=== PATIENT | female | born 1965 | race Caucasian/White ===

== ENCOUNTER 2023-05-01 10:13 | Emergency (ER) | payer MEDICARE, MEDICAID ==
[~2023-05-01] VITALS: Ht 172.7 cm; Wt 67.4 kg
[~2023-05-01 10:13] MED LIST: CYCL-1 PO; HYDR-4353 PO; HYDR-4383 PO
[2023-05-01 10:25] VITALS: BP 111/73; PULSE 89; RESP 16; TEMP 98.5; O2SAT 98
[2023-05-01] MEDS ORDERED: CYCL-1 PO (11:05)
--- NOTE | 2023-05-01 13:48 | NUR ---
I agree with the assessment per Monty Mckeon LVN
== END 2023-05-01 11:18 | disposition home or self-care (01) ==
LOC: ER 10:13
DX: S13.4XXA Sprain of ligaments of cervical spine, initial encounter (principal); E78.00 Pure hypercholesterolemia, unspecified; I10 Essential (primary) hypertension; F31.9 Bipolar disorder, unspecified; M54.2 Cervicalgia; M54.50 Low back pain, unspecified; Z88.5 Allergy status to narcotic agent; Z88.8 Allergy status to other drugs, medicaments and biological substances; Z79.899 Other long term (current) drug therapy; V49.50XA Passenger injured in collision with unspecified motor vehicles in traffic accident, initial encounter; Y93.89 Activity, other specified; Y92.89 Other specified places as the place of occurrence of the external cause; Y99.8 Other external cause status
CPT/HCPCS: 99283

== ENCOUNTER 2024-02-14 21:33 | Emergency (ER) | payer MEDICARE, MEDICAID ==
[~2024-02-14] VITALS: Ht 170.2 cm; Wt 76.8 kg
[2024-02-14 21:35] VITALS: BP 104/64; PULSE 96; RESP 16; TEMP 98.1; O2SAT 98
== END 2024-02-14 22:37 | disposition home or self-care (01) ==
LOC: ER 21:33
DX: Z46.6 Encounter for fitting and adjustment of urinary device (principal); E78.00 Pure hypercholesterolemia, unspecified; I10 Essential (primary) hypertension; G89.29 Other chronic pain; F12.90 Cannabis use, unspecified, uncomplicated; Z88.8 Allergy status to other drugs, medicaments and biological substances; Z79.899 Other long term (current) drug therapy
CPT/HCPCS: 99281; A6222; A6402; A6449

== ENCOUNTER 2024-04-16 14:18 | Emergency (ER) | payer MEDICARE, MEDICAID ==
[~2024-04-16] VITALS: Ht 165.1 cm; Wt 74.5 kg
[2024-04-16 17:04] LABS: BASOPHILS # (AUTO) 0.1 X10'3 (0-0.2); BASOPHILS % (AUTO) 0.8 % (0-1); EOSINOPHILS # (AUTO) 0.2 X10'3 (0-0.9); EOSINOPHILS % (AUTO) 1.8 % (0-6); HEMATOCRIT 27.5 % (35.0-45.0); HEMOGLOBIN 9.3 g/dl (12.0-16.0); LYMPHOCYTES # (AUTO) 2.2 X10'3 (1.1-4.8); LYMPHOCYTES % (AUTO) 19.3 % (21-51); MEAN CORPUSCULAR HEMOGLOBIN 32.2 PG (27.0-31.0); MEAN CORPUSCULAR HGB CONC 33.8 g/dL (33.0-36.5); MEAN CORPUSCULAR VOLUME 95.2 FL (78-98); MEAN PLATELET VOLUME 8.2 FL (7.4-10.4); MONOCYTES # (AUTO) 1.3 X10'3 (0-0.9); MONOCYTES % (AUTO) 11.6 % (2-12); NEUTROPHILS # (AUTO) 7.6 X10'3 (1.8-7.7); NEUTROPHILS % (AUTO) 66.5 % (42-75); PLATELET COUNT 240 X10'3 (140-440); RED BLOOD COUNT 2.89 X10'6 (4.20-5.60); RED CELL DISTRIBUTION WIDTH 13.1 % (11.5-14.5); WHITE BLOOD COUNT 11.4 X10'3 (4.5-11.0)
[2024-04-16 17:14] LABS: ALBUMIN 3.3 G/DL (3.4-5.0); ANION GAP 8 (8-16); BLOOD UREA NITROGEN 27 MG/DL (7-18); BUN/CREATININE RATIO 27.8 (10.0-20.0); CALCIUM 8.8 MG/DL (8.5-10.1); CHLORIDE 99 MMOL/L (99-107); CREATININE 0.97 MG/DL (0.40-0.90); GLUCOSE 91 MG/DL (70-104); POTASSIUM 3.2 MMOL/L (3.5-5.1); SODIUM 135 MMOL/L (135-145); eCRCL 57 ML/MIN; eGFR 59 ML/MIN
[2024-04-16 18:00] VITALS: BP 100/73; PULSE 86; RESP 14; TEMP 99.4; O2SAT 98
== END 2024-04-16 18:06 | disposition home or self-care (01) ==
LOC: ER 14:19
DX: M79.651 Pain in right thigh (principal); E78.00 Pure hypercholesterolemia, unspecified; I10 Essential (primary) hypertension; G89.29 Other chronic pain; F12.90 Cannabis use, unspecified, uncomplicated; F31.9 Bipolar disorder, unspecified; Z88.5 Allergy status to narcotic agent; Z79.899 Other long term (current) drug therapy
CPT/HCPCS: 36415; 73560; 80048; 83605; 84145; 85025; 93971; 99284

== ENCOUNTER 2024-12-16 13:35 | Outpatient (CLI) | payer MEDICARE, MEDICAID ==
--- NOTE | 2024-12-16 20:52 | RADIOLOGY REPORT ---
EXAM: MR MRI LUMBAR SPINE HISTORY: PAIN,OA,RADICULOPATHY COMPARISON: None TECHNIQUE: MRI was performed utilizing multiple appropriate imaging planes and pulse sequences. FINDINGS: For the purposes of this report, the last square-shaped vertebra is considered L5. Prior to any surg heaven, correlation with lumbar spine radiographs should be done. VERTEBRAE: No significant compression deformity is noted. No suspicious lesion is seen. SPINAL CORD: Terminates at the L1 level. No evidence of cord edema or myelomalacia within the parti ally visualized conus medullaris. PARASPINAL SOFT TISSUES: Unremarkable. INTERVERTEBRAL DISCS: T12-L1: Mild central disc protrusion with mild central canal stenosis without nerve impingement. The neural foramina are patent. L1-L2: Mild degenerative grade 1 anterolisthesis without pars defects, severe reduction in disc heigh t, mild broad-based posterior disc-osteophyte complex, modic type 1 discogenic endplate changes on liss th sides of the the disc, mild bilateral posterior facet and ligamentum flavum hypertrophy and small bilateral facet joint effusions with resultant mild central canal stenosis and mild bilateral neural foramina stenosis without definite nerve impingement. L2-L3: Mild degenerative grade 1 anterolisthesis without pars defects, mild broad-based posterior di sc bulge, mild bilateral posterior facet and ligamentum flavum hypertrophy and trace bilateral facet joint effusions with mild central canal stenosis and mild bilateral neural foramina stenosis without definite nerve impingement. L3-L4: Mild broad-based posterior disc bulge, moderate bilateral posterior facet and ligamenta flav a hypertrophy with resultant mild central canal stenosis and mild bilateral neural foramina stenosis with impingement of the bilateral emerging L4 nerve roots. L4-L5: Mild reduction in disc height, mild broad-based posterior disc- osteophyte complex eccentric to the right, modic type 1 discogenic endplate changes on both sides of the disc, moderate right and mild left posterior facet arthropathy prominent posterior fat pt with resultant Moderate central can al stenosis, crowding of the traversing lumbosacral nerve roots, moderate right and mild left neural foramina stenosis with impingement of the bilateral emerging L5 nerve roots and the left exiting L4 n erve. L5-S1: Mild broad-based posterior disc bulge eccentric to the left moderate left foraminal endplate osteophytosis with Modic type 2 endplate changes on the left side, mild bilateral posterior facet and ligamenta flava hypertrophy with resultant mild central canal stenosis , moderate left and mild righ t neural foramina stenosis with impingement of the left emerging S1 nerve roots in the left exiting L 5 nerve . OTHER: None. IMPRESSION: Multilevel degenerative spondylolisthesis, multilevel degenerative disc disease and posterior facet a rthropathy with evidence of nerve impingement at L3-S1 levels. L3-L4: Mild broad-based posterior disc bulge, moderate bilateral posterior facet and ligamenta flav a hypertrophy with resultant mild central canal stenosis and mild bilateral neural foramina stenosis with impingement of the bilateral emerging L4 nerve roots. L4-L5: Mild reduction in disc height, mild broad-based posterior disc- osteophyte complex eccentric to the right, modic type 1 discogenic endplate changes on both sides of the disc, moderate right and mild left posterior facet arthropathy prominent posterior fat pt with resultant Moderate central can al stenosis, crowding of the traversing lumbosacral nerve roots, moderate right and mild left neural foramina stenosis with impingement of the bilateral emerging L5 nerve roots and the left exiting L4 n erve. L5-S1: Mild broad-based posterior disc bulge eccentric to the left moderate left foraminal endplate osteophytosis with Modic type 2 endplate changes on the left side, mild bilateral posterior facet and ligamenta flava hypertrophy with resultant mild central canal stenosis , moderate left and mild righ t neural foramina stenosis with impingement of the left emerging S1 nerve roots in the left exiting L 5 nerve . L1-L2: Mild degenerative grade 1 anterolisthesis without pars defects, severe reduction in disc heigh t, mild broad-based posterior disc-osteophyte complex, modic type 1 discogenic endplate changes on liss th sides of the the disc, mild bilateral posterior facet and ligamentum flavum hypertrophy and small bilateral facet joint effusions with resultant mild central canal stenosis and mild bilateral neural foramina stenosis without definite nerve impingement. L2-L3: Mild degenerative grade 1 anterolisthesis without pars defects, mild broad-based posterior di sc bulge, mild bilateral posterior facet and ligamentum flavum hypertrophy and trace bilateral facet joint effusions with mild central canal stenosis and mild bilateral neural foramina stenosis without definite nerve impingement.
== END 2024-12-16 23:59 | disposition home or self-care (01) ==
LOC: MRI 13:35
PROVIDERS: ATTEND Family Medicine Sports Medicine
DX: M51.17 Intervertebral disc disorders with radiculopathy, lumbosacral region (principal); M25.552 Pain in left hip; Z96.651 Presence of right artificial knee joint; Z96.652 Presence of left artificial knee joint; M25.551 Pain in right hip; M16.12 Unilateral primary osteoarthritis, left hip; M77.9 Enthesopathy, unspecified; M70.60 Trochanteric bursitis, unspecified hip; M16.11 Unilateral primary osteoarthritis, right hip; M54.50 Low back pain, unspecified; M53.3 Sacrococcygeal disorders, not elsewhere classified; M43.16 Spondylolisthesis, lumbar region; M48.061 Spinal stenosis, lumbar region without neurogenic claudication; M47.26 Other spondylosis with radiculopathy, lumbar region
CPT/HCPCS: 72148

== ENCOUNTER 2024-12-24 16:52 | Emergency (ER) | payer MEDICARE, MEDICAID ==
[~2024-12-24] VITALS: Ht 165.1 cm; Wt 72.7 kg
[2024-12-24 17:04] VITALS: BP 121/81; PULSE 95; RESP 16; TEMP 98.5; O2SAT 97
--- NOTE | 2024-12-24 17:16 | Physician Documentation ---
History of Present Illness ~ Chief Complaint: Wound Stated Complaint: BURNING FEELING Time Seen by MD: 18:08 OK to notify your PCP?: Yes Primary Medical Doctor: diamond davila Source: patient Mode of Arrival: POV Exam Limitations: no limitations HPI 59-year-old female presents with pain to tattoo on left calf for the past 2 weeks. She sees that this tattoo is old but she is worried that the red inked may have led in it which is causing some pain and burning sensation. Additional note by Laith Rivers DO: I took over the care of this patient from previous physician. I reviewed any previous notes available, obtain my own history, review of systems and physical examination was performed by myself. She confirms the story. No particular palliating or aggravating factors were elicited with the patient, did not attempt to treat it. She goggled it and she is worried that this is in fact a delayed infection versus allergic reaction. Tetanus within 5 years?: Yes Medication Reconciliation Allergies: Coded Allergies: codeine (Unverified Allergy, Intermediate, 12/24/24) ziprasidone (Verified Allergy, Unknown, 12/24/24) Scheduled Cyclobenzaprine* (Cyclobenzaprine*), 1 TAB PO HS Hydrocodone/Acetaminophen ([place] 5-325 Tablet), 1 TAB PO TID PRN Scheduled PRN Cyclobenzaprine* (Cyclobenzaprine*), 1 TABLET PO Q8H PRN for muscle spasms Hydrocodone Bit/Acetaminophen ([place] 10-325 Tablet), 1 TAB PO Q6H PRN for pain Past Medical History Past Medical History: High Cholesterol, Hypertension, Chronic Pain, Bipolar Past Surgical History: no surgical history Other Past Family History: NONE Alcohol Use: None Drug Use: marijuana Lives In: Home Review of Systems ROS 10 point review of systems was performed and unless noted above in HPI is negative for acute process/complaint. Physical Exam Vital Signs: Temperature: 98.5, Source: Temporal, Heart Rate: 95, Respiratory Rate: 16, BP: 121/81, Pulse Oximetry: 97, Weight: 72.730 Oxygen Flow Rate: 0 Physical Exam Physical examination: GENERAL: Awake, alert, oriented, GCS 15, no apparent distress, non-toxic appearing, answers questions, follows commands appropriately. HEENT: Atraumatic, normocephalic, pupils equal, extraocular muscles intact Active gross movements, sclerae anicteric, mucus membranes moist, no stridor. NECK: Midline, no JVD CARDIOVASCULAR: Good skin perfusion without evidence of pallor, mottling. PULMONARY: Nonlabored, symmetric chest rise, no audible wheezing, no accessory muscle use, no respiratory distress, speaking in full sentences. GASTROINTESTINAL: Not distended. NEUROLOGIC: Lucid with normal mental status. Normal facial symmetry. Moves all extremities symmetrically and with purpose. No truncal ataxia. Speech is fluid without evidence of dysarthria or aphasia, no focal deficits appreciated. EXTREMITIES: Acute deformities Skin: warm, dry PSYCHIATRIC: Normal affect, normal insight, normal concentration. 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 It involves exclusively the outline of the mushroom cap in the red ink. Well demarcated Progress Results/Orders Results/Orders Vital Signs 12/24/24 17:04 Temp 98.5 Pulse 95 Resp 16 B/P (MAP) 121/81 Pulse Ox 97 O2 Flow Rate 0 Medical Decision Making Findings Facility Status: ED Holds, [facility] process The plan was discussed with the patient, who demonstrates clear understanding of the plan and is in agreement with the plan unless otherwise noted in the chart. All questions have been answered, all concerns were addressed unless otherwise documented. I was available throughout their ED stay for frequent reassessment and questions. Differential Diagnoses (considered and possible or likely): [Autoimmune reaction versus superimposed versus primary infection] ??Differential Diagnoses (considered and unlikely, not requiring evaluation currently): [Clinically no evidence of abscess, unlikely to be necrotizing infection] [facility] Data Please see [facility] for the following: Independent Historians and external Records Review. Historian: [Patient] Independent Historians: ?[None] Medication Management: [Reviewed medication list] Social History and determinants: [Reviewed] Please see the body of the note for the following: Any independent interpretations of ECG, imaging studies. All vitals signs/haemodynamics, ordered tests were independently reviewed and interpreted by myself. Nursing triage complaint and vitals reviewed, additional nursing notes were reviewed as available and I agree unless otherwise noted or documented in contradiction in the chart Vital Signs: Independently reviewed Labs: Independently interpreted Imaging: Independently interpreted Old Medical Records: Independently reviewed, see [facility] for relevant summary and information Pulse Oximetry: [99%] interpreted as [normal on room air] by me Additionally notably showing: [Hemodynamically stable] Tests considered but not ordered include: [Hematologic workup and imaging has been considered but does not appear to be necessary given clinical nature of diagnosis] Social Determinants of Health Impact: Patient was evaluated in [facility], [facility] [place] access to healthcare due to below par ratio of patient to medical providers. [] Comorbid Conditions Impacting Present Evaluation and Care/Treatment: [None] Management Discussions with other Healthcare Providers: [None] Treatment and Disposition Medication Management (Given or considered): []. See EMR for details Consideration for Hospitalization/Escalation/Deescalation of Care: Admission for observation has been considered, [however the patient is able to tolerate p.o., their symptoms are controlled, they are able to rely on oral medications, and their chief complaint/diagnosis can be managed on outpatient basis.] ?ED Course:?[No clinical deterioration] ?Shared decision making:?[Patient is hemodynamically stable for discharge home with follow with their primary care provider. [ ] Specific and cautious return precautions provided and discussed with full understanding. Any incidental findings were also discussed and follow up recommendations given. [] All questions answered. Patient/family were able to verbalize back return precautions. Patient/family agree to plan. Copies of imaging and laboratory studies were provided.] Code status:?FULL Please see the full Electronic Medical Record for full details of nursing documentation, medications list, other records of complete past medical history and conditions, vital signs, laboratory studies, and any radiologic study interpretations by radiologists. Portions of this note were completed using [employer] dictation software and as a result there may exist minor errors in spelling. I have reviewed elements of past family and social history and agree as included in note. Departure Disposition: HOME / SELF CARE / HOMELESS Impression: Primary Impression: Cellulitis of leg without foot, left Additional Impression: Tattoo reaction Condition: Stable Discharge Instructions: Cellulitis, Adult Referrals: NO PRIMARY CARE PROVIDER (PCP) Prescriptions Cephalexin*Monohydrate* (Keflex*) 500 Mg Capsule 1 CAP PO Q6H for 10 Days, #40 CAP Prov: LAITH RIVERS DO 12/24/24 Education Educated: Patient Educated regarding: diagnosis, treatment, prognosis, need for follow up Additional Comment Medical Screen Exam This patient recieved a medical screening examination. After reviewing the individual's medical complaints with presenting symptoms and performing an appropriate physical examination, it was determined that no emergency medical condition is present. This individual is also not a women having contractions. Signature Scribe Signature: No scribe Attestation: This note accurately reflects clinical decisions, work performed by myself, DO CHRISTOFER Hernandez [facility] Dec 24, 2024 17:16 LAITH RIVERS DO Dec 24, 2024 18:27
[2024-12-24] MEDS ORDERED: CEPH-585 PO (18:28)
[2024-12-24] MEDS ORDERED: HYDR28CR14 TOP (18:54)
== END 2024-12-24 18:42 | disposition home or self-care (01) ==
LOC: ER 16:52
DX: L03.116 Cellulitis of left lower limb (principal); L81.8 Other specified disorders of pigmentation; E78.00 Pure hypercholesterolemia, unspecified; I10 Essential (primary) hypertension; F12.90 Cannabis use, unspecified, uncomplicated; F31.9 Bipolar disorder, unspecified; Z88.5 Allergy status to narcotic agent; Z79.899 Other long term (current) drug therapy
CPT/HCPCS: 99283

== ENCOUNTER 2024-12-29 06:12 | Outpatient (CLI) | payer MEDICARE, MEDICAID ==
[~2024-12-29 06:12] MED LIST changes: +CEPH-585 PO; +HYDR28CR14 TOP
[2024-12-29] MEDS ORDERED: LIDOcaine 1%/PF 5ML 10 MG/ML VIAL ONE (06:41)
[2024-12-29] MEDS ORDERED: iohexol 300 MG/1 ML 50ml polymer ONE (06:41)
[2024-12-29] MEDS ORDERED: LIDOcaine 1% 30ml preserv. free vial ONE (06:42)
[2024-12-29] MEDS ORDERED: GADOTERATE MEGLUMINE 7.5 MMOL/15 ML VIAL IV ONE (06:42)
--- NOTE | 2024-12-29 10:17 | RADIOLOGY REPORT ---
CLINICAL INDICATION: PAIN IN RIGHT HIP COMPARISON: None TECHNIQUE: Multiplanar, multi-sequence MRI of the right hip was performed without after the u neventful intra-articular administration of a dilute gadolinium solution. The contralateral hip is in cluded on several sequences. Contrast: None INTERPRETATION: Joint space: The joint is appropriately distended with intra-articular contrast. Bones and articular cartilage: There is right hip joint space narrowing and diffuse chondral thinning on both sides of the hip joint. There are osteophytes along the right femoral head neck junction. No evidence of bone marrow edema or marrow replacing lesion. No avascular necrosis. Alignment is maint ained. Left hip joint space narrowing is seen on the large [id number] images with the left hip carol ann int effusion. Tendons, muscles and bursae: There is no tendon tear. There is insertional tendinopathy of the right gluteus medius and minimus tendons. There is fluid superficial to the right iliotibial band. Regiona l muscles are normal in bulk and signal characteristics. There is no evidence of bursitis. Contralate ral hip shows insertional tendinopathy of the left gluteus medius tendon. Acetabular labrum: Chronic Tear of the anterior superior labrum. IMPRESSION: 1. Moderate right hip osteoarthritis. 2. Chronic anterior superior right labral tear. 3. Small volume fluid superficial to the iliotibial band may reflect sequelae of IT band syndrome.
--- NOTE | 2024-12-29 11:04 | RADIOLOGY REPORT ---
ANGIO ARTHROGRAM (A) Date: 12/29/2024 07:20 AM Clinical History: PAIN IN RIGHT HIP Comparison: None Procedure: Verbal and written informed consent were obtained from the patient for the procedure of RIGHT HIP fl uoroscopically guided arthrogram, after the procedure, risks, and benefits of the procedure were expl ained to the patient. Risks include bleeding, infection, reaction to injected medications, and damag e to surrounding anatomic structures. The patient's questions were answered. The patient's most rec ent medical history was reviewed. A time out was performed to verify the patient's name, date of , and correct location of the pro cedure, prior to initiation of the procedure. The patient was placed supine on the fluoroscopic table and the area overlying the RIGHT HIP was pre pped and draped in the usual sterile fashion. The patient tolerated the procedure well. There were no immediate complications. Home-care instruct ions were reviewed with the patient prior to the patient's discharge from the fluoroscopy suite. The patient verbally affirmed understanding of these instructions. Impression: Technically successful fluoroscopically guided RIGHT HIP arthrogram. The patient was transported to MRI for further imaging at the completion of the procedure. Procedure by Dr. Cabral
== END 2024-12-29 23:59 | disposition home or self-care (01) ==
LOC: MRI 06:12
PROVIDERS: ATTEND Family Medicine Sports Medicine
DX: M25.551 Pain in right hip (principal); M16.11 Unilateral primary osteoarthritis, right hip; S73.191A Other sprain of right hip, initial encounter; X58.XXXA Exposure to other specified factors, initial encounter; Y93.89 Activity, other specified; Y92.89 Other specified places as the place of occurrence of the external cause; Y99.8 Other external cause status
CPT/HCPCS: 27093; 73722; 77002; A9575; J2003; J3490; Q9967; 76942

== ENCOUNTER 2025-03-30 05:59 | Outpatient (CLI) | payer MEDICARE, MEDICAID ==
[~2025-03-30 05:59] MED LIST changes: -CEPH-585 PO
[2025-03-30] MEDS ORDERED: GADOTERATE MEGLUMINE 7.5 MMOL/15 ML VIAL IV ONE (06:37)
[2025-03-30] MEDS ORDERED: LIDOcaine 1%/PF 5ML 10 MG/ML VIAL ONE (06:37)
[2025-03-30] MEDS ORDERED: iohexol 300 MG/1 ML 50ml polymer ONE (06:37)
[2025-03-30] MEDS ORDERED: LIDOcaine 1% 30ml preserv. free vial ONE (06:37)
--- NOTE | 2025-03-30 08:31 | RADIOLOGY REPORT ---
ANGIO ARTHROGRAM (A) Date: 03/30/2025 07:19 AM Clinical History: PAIN IN LEFT HIP Comparison: ANGIO ARTHROGRAM (A) on DOS: 12/29/24, MR MRI LOWER EXTREMITY RIGHT on DOS: 12/29/24, DI KNEE LIMITED (AP/LAT) on DOS: 04/16/24 Procedure: Verbal and written informed consent were obtained from the patient for the procedure of left hip fluoroscopically guided arthrogram, after the procedure, risks, and benefits of the procedure were explained to the patient. Risks include bleeding, infection, reaction to injected medications, and damage to surrounding anatomic structures. The patient's questions were answered. The patient's most recent medical history was reviewed. A time out was performed to verify the patient's name, date of , and correct location of the procedure, prior to initiation of the procedure. The patient was placed supine on the fluoroscopic table and the area overlying the left hip was prepped and draped in the usual sterile fashion. Approximately 7 ml of buffered 1% lidocaine were infused for local anesthesia. Under direct fluoroscopic guidance, a 22 gauge spinal needle was advanced percutaneously into the left hip joint . Approximately 10 ml of a mixture of 6 ml of bupivicaine, 5 ml of Omnipaque 300 contrast, and 0.1 ml of gadolinium contrast were injected. A spot film was obtained to document placement of the contrast within the joint capsule. The needle was removed. The patient tolerated the procedure well. There were no immediate complications. Home-care instructions were reviewed with the patient prior to the patient's discharge from the fluoroscopy suite. The patient verbally affirmed understanding of these instructions. Impression: Technically successful fluoroscopically guided left hip joint arthrogram. The patient was transported to MRI for further imaging at the completion of the procedure. Procedure by Dr. Cabral
--- NOTE | 2025-03-30 12:03 | RADIOLOGY REPORT ---
CLINICAL INDICATION: PAIN IN LEFT HIP COMPARISON: MRI of the right hip and pelvis dated 12/29/2024. TECHNIQUE: Multiplanar, multi-sequence MRI of the left hip was performed using dilute gadolinium solution. The contralateral hip is included on some of the sequences. Contrast: None INTERPRETATION: Joint space: The left hip joint is appropriately distended with intra-articular contrast. Contralateral hip shows degenerative changes. Bones and articular cartilage: There is no fracture, bone marrow edema or avascular necrosis. The alignment is normal. There is chondral thinning in the left femoral head and acetabulum. Tendons, muscles and bursae: There is insertional tendinopathy of the left gluteus medius tendon. There is no evidence of intramuscular edema or muscle atrophy. There is trace fluid in the trochanter bursa. Acetabular labrum: There is contrast filling a small linear defect in the anterior superior acetabular labrum suspicious for labral tear. Other findings: Degenerative changes in the lower lumbar spine. IMPRESSION: 1. Mild degenerative changes in the left hip. 2. Small tear of the anterior superior left acetabular labrum. 3. Insertional tendinopathy of left gluteus medius. 4. Trace left trochanteric bursitis. 5. Degenerative changes in the right hip.
== END 2025-03-30 23:59 | disposition home or self-care (01) ==
LOC: MRI 05:59
PROVIDERS: ATTEND Family Medicine Sports Medicine
DX: S73.192A Other sprain of left hip, initial encounter (principal); M47.816 Spondylosis without myelopathy or radiculopathy, lumbar region; M25.552 Pain in left hip; M16.0 Bilateral primary osteoarthritis of hip; X58.XXXA Exposure to other specified factors, initial encounter; Y93.89 Activity, other specified; Y92.89 Other specified places as the place of occurrence of the external cause; Y99.8 Other external cause status
CPT/HCPCS: 27093; 73722; 77002; A9575; J2003; J3490; Q9967